=== PATIENT | male | born 1950 | race Caucasian/White ===

== ENCOUNTER → 2023-07-29 10:03 | Outpatient (REF) | payer OTHER, SELFPAY | LOC: RAD 10:03 | PROVIDERS: ATTENDING PHYSICIAN Family Medicine | DX: K11.1 Hypertrophy of salivary gland (principal) | CPT/HCPCS: 76536 ==

== ENCOUNTER 2023-08-01 06:05 | Day surgery (SDC) | payer OTHER, SELFPAY ==
--- NOTE | 2023-07-29 13:09 | CM ---
Patient is scheduled for a TURP on 08/01/23. Spoke with patient prior to surgery via telephone to complete case management assessment and assess for discharge planning needs. Patient reports that he lives with his sister in a one story home. There is
one step to enter. He currently functions independently and uses a rollator. He also has a cane, shower seat, raised toilet seat, long handled shoe horn and grabber. He has had VN services through [facility]. He has a prescription plan and uses [facility].
PCP is Gopal Velez.
Discussed discharge plans. Patient plans to return home at discharge. He states that his sister will be home with him for a day or two. Discussed possible need for VN services and reviewed options. Patient states that if services are needed, he
selects [facility].
[place] text sent to [facility] liaison, Charlene Ag, alerting her to surgery date and possible need for VN.
[2023-08-01] VITALS (11 sets, daily range): BP systolic 102–124; BP diastolic 57–71; BMI 34.1
[2023-08-01] MEDS: NORMOSOL-R 1000 IV (12:55)
[2023-08-01 14:30] LABS: Glucose - Point of Care 102 mg/dl (70-99)
[2023-08-01 14:39] LABS: ALT (SGPT) 37 U/L (0-50); AST (SGOT) 34 U/L (17-59); Albumin 3.7 g/dl (3.5-5.0); Alkaline Phosphatase 97 U/L (38-126); Blood Urea Nitrogen 25 mg/dl (9-20); Calcium 9.5 mg/dl (8.4-10.2); Carbon Dioxide 25 mmol/L (22-30); Chloride 107 mmol/L (98-107); Estimated Creatinine Clearance 67 ml/min; Glucose 122 mg/dl (70-99); Potassium 3.8 mmol/L (3.5-5.1); Sodium 139 mmol/L (135-145); Total Bilirubin 0.7 mg/dl (0.2-1.3); Total Protein 6.5 g/dl (6.3-8.2); eGFR > 60.00
[2023-08-01 15:38] LABS: Glucose - Point of Care 95 mg/dl (70-99)
--- NOTE | 2023-08-01 15:51 | W.IMMPOSTOP ---
Surgical Immed Post Op Note
-
Primary Surgeon: Arleth
Pre-op Diagnosis: BPH with obstructing median lobe, OAB
Post-op Diagnosis: Same
Procedure Performed: button vaporization TURP
Anesthesia Type: LMA
Specimen / Cultures: None/None
Estimated Blood Loss: Negligible
Drains: 22Fr 3-way catheter (30 cc in balloon)
Complications: None
Operative Findings: crystal clear urine on low drip CBI at conclusion of procedure, no involvement of bladder neck, UOs, verumontanum, external urethral sphincter - focal complete vaporization of obstructing median lobe only performed.
D/w spouse post-op.
[2023-08-01] MEDS: DETROL LA 4 MG PO (16:29)
--- NOTE | 2023-08-01 16:30 | VNURNOTE ---
[facility] referral completed in [facility] after review of chart.
Call to patient's sister to discuss visits, no answer.
--- NOTE | 2023-08-01 17:40 | PTCARENOTE ---
Pt received from the PACU via bed. Transport was w/o incident. Pt is AAOx3, HRR, lungs are clear. Pt with CBI running. Urine is clear light yellow, no blood or clots noted. VSS, pt is afebrile. Pt instructed on plan of care. Pt verbalized
understanding of instructions. Call [facility] is within reach.
[2023-08-01 18:05] LABS: Glucose - Point of Care 102 mg/dl (70-99)
[2023-08-01] MEDS: PROTONIX 40 MG PO (20:12)
[2023-08-01] MEDS: NEURONTIN 100 MG PO (20:12)
[2023-08-01 21:54] LABS: Glucose - Point of Care 112 mg/dl (70-99)
[2023-08-01] MEDS: TOPROL XL 50 MG PO (21:55)
[2023-08-01] MEDS: REMERON 15 MG PO (21:57)
[2023-08-02 03:37] VITALS: BP 101/64
[2023-08-02 07:20] VITALS: BP 128/79
[2023-08-02 07:22] LABS: % Basophils 0.4 % (0-2); % Eosinophils 2.3 % (0-6); % Immature Granulocytes 0.3 % (0-0.5); % Lymphocytes 44.9 % (20.5-51.1); % Monocytes 8.4 % (1.7-9.3); % Neutrophils 43.7 % (42.2-75.2); Absolute Eosinophils 0.2 10^3/uL (0-0.7); Absolute Lymphocytes 4.7 10^3/uL (1.2-3.4); Absolute Monocytes 0.9 10^3/uL (0.1-0.6); Absolute Neutrophils 4.6 10^3/uL (1.4-6.5); Hematocrit 41.2 % (39.0-52.0); Hemoglobin 14.1 g/dL (13.0-18.0); Mean Corp Hgb Conc. 34.2 g/dL (33.0-37.0); Mean Corpuscular Hgb 32.6 pg (27.0-31.0); Mean Corpuscular Volume 95.2 fL (80.0-94.0); Mean Platelet Volume 9.7 fL (7.4-10.4); Nucleated Red Blood Cells % 0 % (-); Platelet Count 145 10^3/uL (130-400); Red Blood Cell Count 4.33 10^6/uL (4.70-6.10); Red Cell Dist. Width 12.5 % (11.5-14.5); White Blood Cell Count 10.5 10^3/uL (4.8-10.8)
[2023-08-02 07:26] LABS: Glucose - Point of Care 101 mg/dl (70-99)
[2023-08-02 07:46] LABS: Blood Urea Nitrogen 24 mg/dl (9-20); Calcium 9.2 mg/dl (8.4-10.2); Carbon Dioxide 30 mmol/L (22-30); Chloride 103 mmol/L (98-107); Estimated Creatinine Clearance 74 ml/min; Glucose 104 mg/dl (70-99); Potassium 4.3 mmol/L (3.5-5.1); Sodium 138 mmol/L (135-145); eGFR > 60.00
--- NOTE | 2023-08-02 08:37 | W.PN.URO.CBU ---
Today's Communication / Plan
-
home after voiding trial
Assessment / Plan
-
ding removal for TOV and discharge
Diagnosis
-
Date of Service: August 02, 2023
-
Patient Diagnosis:
bph
Post Op Day:
turp
Subjective
-
no complaints
urine lonnie off cbi
Objective
-
Vital Signs
Temp Pulse Resp BP Pulse Ox
98.0 F 69 16 128/79 98
08/02/23 07:20 08/02/23 07:20 08/02/23 07:20 08/02/23 07:20 08/02/23 07:20
Intake and Output
08/01/23 08/02/23 08/03/23
06:59 06:59 06:59
Intake Total 680 / 680
Output Total 1250 / 1250
Balance -570 / -570
Intake:
Oral fluids 530 / 530
IV fluids (Total) 150 / 150
normosol 150 / 150
Output:
True Urine Output from CBI 1250 / 1250
Laboratory Results
08/02/23 07:13
08/02/23 07:13
Physical Exam
-
General - no acute distress
Abdomen - soft, non-tender
Genitalia - ding in place
[2023-08-02] MEDS: MAGNESIUM OXIDE 500 MG PO (08:49)
[2023-08-02] MEDS: PROTONIX 40 MG PO (08:49)
[2023-08-02] MEDS: EFFEXOR XR 75 MG PO (08:49)
[2023-08-02] MEDS: VITAMIN D3 (cholecalciferol) 125 MCG PO (08:50)
[2023-08-02] MEDS: JARDIANCE 25 MG PO (08:50)
[2023-08-02] MEDS: NEURONTIN 100 MG PO (08:50)
[2023-08-02] MEDS: VITAMIN E 400 UNITS PO (08:50)
[2023-08-02] MEDS: THERAGRAN 1 TABLET PO (08:50)
[2023-08-02] MEDS: ABILIFY 10 MG PO (08:50)
[2023-08-02] MEDS: TOPROL XL 12.5 MG PO (08:50)
[2023-08-02] MEDS: VITAMIN C 500 MG PO (08:50)
[2023-08-02] MEDS: COZAAR 100 MG PO (08:50)
[2023-08-02] MEDS: PEPCID 40 MG PO (08:50)
--- NOTE | 2023-08-02 11:44 | CM ---
CM following re: d/c planning.
Pt for d/c today, pending voiding trial.
Arrangements made for [facility].
CM met with pt at bedside, his sister will provide transportation.
He is aware of plan with [facility].
Goal: home with [facility].
[2023-08-02 11:47] LABS: Glucose - Point of Care 150 mg/dl (70-99)
[2023-08-02 11:55] VITALS: BP 150/84
[2023-08-02 15:00] VITALS: BP 151/89
--- NOTE | 2023-08-02 15:08 | PTCARENOTE ---
Addendum entered by Rose Guerrier RN 08/02/23 15:17:
Dr. Monge also made aware of ecchymosis at the tip of patients penis.
Original Note:
At 1415 patient voided 200 ml of lonnie blood tinged urine with no clots. PVR was 210. Patient denied pain and stated he did not have to urinate. Dr. Monge made aware. Patient ok for discharge.
[2023-08-02 15:18] LABS: Glucose - Point of Care 124 mg/dl (70-99)
== END 2023-08-02 16:30 | disposition home or self-care (01) ==
LOC: SDS 06:05
PROVIDERS: ATTENDING PHYSICIAN Surgery
PROC: 0VT08ZZ Resection of Prostate, Via Natural or Artificial Opening Endoscopic (ICD-10-PCS; 2023-08-01)
DX: N40.1 Benign prostatic hyperplasia with lower urinary tract symptoms (principal); N13.8 Other obstructive and reflux uropathy; R39.15 Urgency of urination; R35.0 Frequency of micturition; N32.81 Overactive bladder
CPT/HCPCS: 52601; 80048; 80053; 82962; 85025

== ENCOUNTER 2024-11-25 06:41 | Outpatient (RCR) | payer OTHER, SELFPAY | END 2024-11-25 23:59 | disposition home or self-care (01) | LOC: RPT 06:41 | PROVIDERS: ATTENDING PHYSICIAN Surgery; FAMILY PHYSICIAN Family Medicine | DX: N32.81 Overactive bladder (principal); R35.0 Frequency of micturition; M62.89 Other specified disorders of muscle; N39.46 Mixed incontinence; Z73.6 Limitation of activities due to disability | CPT/HCPCS: 97163; 97530 ==

== ENCOUNTER 2025-01-11 11:08 | Outpatient (RCR) | payer OTHER, SELFPAY | END 2025-01-11 23:59 | disposition home or self-care (01) | LOC: RPT 11:08 | PROVIDERS: ATTENDING PHYSICIAN Surgery; FAMILY PHYSICIAN Family Medicine | DX: N32.81 Overactive bladder (principal); R35.0 Frequency of micturition; M62.89 Other specified disorders of muscle; N39.46 Mixed incontinence; Z73.6 Limitation of activities due to disability | CPT/HCPCS: 97110; 97530 ==

== ENCOUNTER 2025-01-25 08:40 | Outpatient (RCR) | payer OTHER, SELFPAY | END 2025-01-25 23:59 | disposition home or self-care (01) | LOC: RPT 08:40 | PROVIDERS: ATTENDING PHYSICIAN Surgery; FAMILY PHYSICIAN Family Medicine | DX: N32.81 Overactive bladder (principal); R35.0 Frequency of micturition; M62.89 Other specified disorders of muscle; N39.46 Mixed incontinence; Z73.6 Limitation of activities due to disability | CPT/HCPCS: 97112; 97530 ==

== ENCOUNTER 2025-03-01 08:34 | Outpatient (RCR) | payer OTHER, SELFPAY | END 2025-03-01 23:59 | disposition home or self-care (01) | LOC: RPT 08:34 | PROVIDERS: ATTENDING PHYSICIAN Surgery; FAMILY PHYSICIAN Family Medicine | DX: N32.81 Overactive bladder (principal); R35.0 Frequency of micturition; M62.89 Other specified disorders of muscle; N39.46 Mixed incontinence; Z73.6 Limitation of activities due to disability | CPT/HCPCS: 97110; 97112; 97530 ==